=== PATIENT | female | born 1945 | race African-American/Black ===

== ENCOUNTER 2016-06-23 16:23 | Inpatient (IN) | payer OTHER ==
[~2016-06-23] VITALS: Ht 144.8 cm; Wt 51.1 kg
[~2016-06-23 16:23] MED LIST: CITALOPRAM HBR20 M1 PO; COGENTIN1 MG PO; GLUCOPHAGE1000 MG PO; IRON; LAMICTAL25 MG PO; LOPRESSOR25 MG PO; PRILOSEC40 MG PO; SEROQUEL200 MG PO; SEROQUEL300 MG PO; THERAGRAN1 TABLET PO; ZESTRIL,PRINIVI10 MG PO; Zestril,Prinivil PO
[2016-06-23 18:20] LABS: CHLORIDE 104 mEq/L (99-109); POTASSIUM 4.1 mEq/L (3.7-5.4); SODIUM 142 mEq/L (136-147)
[2016-06-23 18:22] LABS: GLUCOSE 305 mg/dL (70-99)
[2016-06-23 18:24] LABS: ANION GAP 12 MEQ/L (2-14); TOTAL BILIRUBIN 0.3 mg/dL (0.0-1.0)
[2016-06-23 18:26] LABS: ALKALINE PHOSPHATASE 96 IU/L (3-129); GFR ESTIMATE (CALCULATED) 38 mL/min/
[2016-06-23 18:27] LABS: UREA NITROGEN (BUN) 18 mg/dL (9-23)
[2016-06-23 18:37] LABS: HEMATOCRIT 33.1 % (36.0-46.0); MCH 30.9 PG (29.0-34.0); MCHC 34.1 G/DL (30.0-36.0); MCV 90.4 FL (83-99); RBC DIS.WIDTH-CV 12.5 % (11.8-14.6); RBC DIS.WIDTH-SD 39.5 % (39-53); RED BLOOD COUNT 3.66 M/uL (3.80-5.20); WHITE BLOOD COUNT 10.2 K/uL (4.1-10.2)
[2016-06-23 19:05] LABS: MEAN PLAT.VOLUME 13.2 uM^3 (9.5-12.4); PLATELET COUNT 218 K/uL (156-360)
[2016-06-23] MEDS ORDERED: LOPRESSOR50 MG PO (21:45)
[2016-06-23] MEDS ORDERED: FERROUS SULFAT325 MG PO (21:47)
[2016-06-23] MEDS ORDERED: LIPITOR40 MG PO (21:47)
[2016-06-23] MEDS ORDERED: PROTONIX40 MG PO (21:48)
[2016-06-23] MEDS ORDERED: CALCITRIOL0.25 MCG PO (21:48)
[2016-06-23] MEDS ORDERED: LANTUS 10100 UNITS/ SC (21:49)
[2016-06-23] MEDS ORDERED: HUMALOG100 UNIT/1 SC (21:49)
[2016-06-23] MEDS ORDERED: VITAMIN D31000 UNI2 PO (21:50)
[2016-06-23] MEDS ORDERED: PRESERVISION T1 EACH PO (21:50)
[2016-06-23] MEDS ORDERED: ZESTRIL20 MG PO (21:51)
[2016-06-23 23:54] VITALS: BP 210/101
[2016-06-24 07:38] VITALS: BP 187/105
[2016-06-24 15:39] VITALS: BP 176/78
[2016-06-24 17:24] LABS: POINT-OF-CARE METER ID UU13113830
[2016-06-25 06:10] LABS: POINT-OF-CARE METER ID UU13113830; POINT-OF-CARE USER ID ENVTLS63
[2016-06-25 07:44] VITALS: BP 182/84
[2016-06-25 10:08] LABS: GLUCOSE 350 mg/dL (70-99)
[2016-06-25 15:25] VITALS: BP 205/88
[2016-06-25 15:46] LABS: ANION GAP 12 MEQ/L (2-14); CHLORIDE 99 MEQ/L (99-109); POTASSIUM 4.8 MEQ/L (3.7-5.4); SAMPLE HEMOLYSIS CHECK 0; SAMPLE ICTERIC CHECK 0; SAMPLE LIPEMIA CHECK 0; SODIUM 136 MEQ/L (136-147)
[2016-06-25 15:52] LABS: GFR ESTIMATE (CALCULATED) > 59 mL/min/; GLUCOSE 313 mg/dL (70-99); UREA NITROGEN (BUN) 15 mg/dL (9-23)
[2016-06-25 16:08] LABS: HEMATOCRIT 32.9 % (36.0-46.0); MCH 30.9 PG (29.0-34.0); MCV 90.9 FL (83-99); MEAN PLAT.VOLUME 14.1 uM^3 (9.5-12.4); PLATELET COUNT 169 K/uL (156-360); RBC DIS.WIDTH-CV 12.8 % (11.8-14.6); RBC DIS.WIDTH-SD 41.8 % (39-53); RED BLOOD COUNT 3.62 M/uL (3.80-5.20); WHITE BLOOD COUNT 10.3 K/uL (4.1-10.2)
[2016-06-25 17:44] LABS: POINT-OF-CARE METER ID UU13113830; POINT-OF-CARE USER ID 611041309
[2016-06-25 21:04] VITALS: BP 164/105
[2016-06-25 21:10] VITALS: BP 164/105
[2016-06-25 21:35] LABS: POINT-OF-CARE METER ID UU13113830; POINT-OF-CARE USER ID ENVTLS63
[2016-06-26 02:09] LABS: POINT-OF-CARE METER ID UU13113830; POINT-OF-CARE USER ID ENVTLS63
[2016-06-26 06:33] LABS: POINT-OF-CARE METER ID UU13113830; POINT-OF-CARE USER ID ENVTLS63
[2016-06-26 06:46] LABS: POINT-OF-CARE METER ID UU13113830; POINT-OF-CARE USER ID ENVTLS63
[2016-06-26 08:00] VITALS: BP 150/90
[2016-06-26 11:06] LABS: POINT-OF-CARE METER ID UU13113830; POINT-OF-CARE USER ID HRSENV50
[2016-06-26 14:44] LABS: POINT-OF-CARE METER ID UU13113830
[2016-06-26 15:40] VITALS: BP 178/84
[2016-06-26 18:02] LABS: POINT-OF-CARE METER ID UU13113830; POINT-OF-CARE USER ID BHSSMG
[2016-06-26 20:34] LABS: POINT-OF-CARE METER ID UU13113830
[2016-06-26 21:22] LABS: POINT-OF-CARE METER ID UU13113830
[2016-06-27 06:41] LABS: POINT-OF-CARE METER ID UU13113830
[2016-06-27 07:09] LABS: POINT-OF-CARE METER ID UU13113830
[2016-06-27 07:23] LABS: Estimated Average Glucose 163 mg/dL (70-123)
[2016-06-27 07:29] LABS: HEMOGLOBIN A1c (GLYCOHEMOGLOB) 7.3 % HGB (Below 5.7)
[2016-06-27 07:56] VITALS: BP 146/78
[2016-06-27 15:29] VITALS: BP 185/84
[2016-06-27 19:13] VITALS: BP 192/92
[2016-06-27 21:30] LABS: POINT-OF-CARE METER ID UU13113830
[2016-06-28 06:29] LABS: POINT-OF-CARE METER ID UU13113830
[2016-06-28 07:41] VITALS: BP 185/91
[2016-06-28 12:21] LABS: POINT-OF-CARE METER ID UU13113830
[2016-06-28 15:30] VITALS: BP 211/108
[2016-06-28 17:45] LABS: POINT-OF-CARE METER ID UU13113830
[2016-06-28 18:18] VITALS: BP 218/100
[2016-06-28 21:25] LABS: POINT-OF-CARE METER ID UU13113830; POINT-OF-CARE USER ID 611041309
[2016-06-28 21:42] VITALS: BP 154/66
[2016-06-29 05:50] VITALS: BP 179/78
[2016-06-29 06:04] LABS: POINT-OF-CARE METER ID UU13113830; POINT-OF-CARE USER ID BHSSMG
[2016-06-29 07:45] VITALS: BP 114/59
[2016-06-29 10:05] LABS: ANION GAP 8 MEQ/L (2-14); CHLORIDE 103 MEQ/L (99-109); GFR ESTIMATE (CALCULATED) 48 mL/min/; GLUCOSE 201 mg/dL (70-99); POTASSIUM 3.9 MEQ/L (3.7-5.4); SAMPLE HEMOLYSIS CHECK 0; SAMPLE ICTERIC CHECK 0; SAMPLE LIPEMIA CHECK 0; SODIUM 140 MEQ/L (136-147); UREA NITROGEN (BUN) 20 mg/dL (9-23)
[2016-06-29 13:12] LABS: POINT-OF-CARE METER ID UU13113830; POINT-OF-CARE USER ID HRSENV50
[2016-06-29 15:29] VITALS: BP 165/74
[2016-06-29 21:06] LABS: POINT-OF-CARE METER ID UU13113830
[2016-06-30 06:22] LABS: POINT-OF-CARE METER ID UU13113830; POINT-OF-CARE USER ID ENVTLS63
[2016-06-30 08:01] VITALS: BP 139/69
[2016-06-30 09:20] LABS: ANION GAP 11 MEQ/L (2-14); CHLORIDE 107 MEQ/L (99-109); GFR ESTIMATE (CALCULATED) 48 mL/min/; GLUCOSE 185 mg/dL (70-99); POTASSIUM 4.2 MEQ/L (3.7-5.4); SAMPLE HEMOLYSIS CHECK 0; SAMPLE ICTERIC CHECK 0; SAMPLE LIPEMIA CHECK 0; SODIUM 143 MEQ/L (136-147); UREA NITROGEN (BUN) 23 mg/dL (9-23)
[2016-06-30 15:13] VITALS: BP 145/77
[2016-06-30 17:14] LABS: POINT-OF-CARE METER ID UU13113830
[2016-06-30 21:53] LABS: POINT-OF-CARE METER ID UU13113830; POINT-OF-CARE USER ID ENVTLS63
[2016-07-01 06:28] LABS: POINT-OF-CARE METER ID UU13113830; POINT-OF-CARE USER ID ENVTLS63
[2016-07-01 07:25] VITALS: BP 139/65
[2016-07-01 15:35] VITALS: BP 179/80
[2016-07-01 17:15] LABS: POINT-OF-CARE METER ID UU13113830
[2016-07-01 18:57] VITALS: BP 190/87
[2016-07-01 20:50] LABS: POINT-OF-CARE METER ID UU13113830
[2016-07-02 06:36] LABS: POINT-OF-CARE METER ID UU13113830
[2016-07-02 08:03] VITALS: BP 173/79
[2016-07-02 16:06] VITALS: BP 174/77
[2016-07-02 19:37] VITALS: BP 176/82
[2016-07-02 21:38] LABS: POINT-OF-CARE METER ID UU13113830; POINT-OF-CARE USER ID BHSMEW
[2016-07-03 06:18] LABS: POINT-OF-CARE METER ID UU13113830; POINT-OF-CARE USER ID BHSSMG
[2016-07-03 07:47] VITALS: BP 152/79
[2016-07-03 11:40] LABS: POINT-OF-CARE METER ID UU13113830
[2016-07-03 15:50] VITALS: BP 153/74
[2016-07-03 21:18] LABS: POINT-OF-CARE METER ID UU13113830; POINT-OF-CARE USER ID BHSMEW
[2016-07-04 00:49] LABS: POINT-OF-CARE METER ID UU13113830
[2016-07-04 06:59] LABS: POINT-OF-CARE METER ID UU13113830
[2016-07-04 08:01] VITALS: BP 147/78
[2016-07-04] MEDS ORDERED: LEVEMIR100 UNIT/2 SC (09:34)
[2016-07-04] MEDS ORDERED: SEROQUEL200 MG PO (09:34)
[2016-07-04] MEDS ORDERED: AMLODIPINE BESYL5 MG PO (09:34)
== END 2016-07-04 12:42 | disposition home or self-care (01) | DRG 885 ==
LOC: EME 16:23 → 1WEST 20:29 → EDOF 20:29 → 1WEST 23:42
PROVIDERS: Family Medicine; Hospitalist; Internal Medicine; Nurse Practitioner Family; Psychiatry & Neurology Psychiatry
DX: F31.2 Bipolar disorder, current episode manic severe with psychotic features (principal); E11.00 Type 2 diabetes mellitus with hyperosmolarity without nonketotic hyperglycemic-hyperosmolar coma (NKHHC); R44.0 Auditory hallucinations; E11.65 Type 2 diabetes mellitus with hyperglycemia; Z91.128 Patient's intentional underdosing of medication regimen for other reason; I10 Essential (primary) hypertension; E78.5 Hyperlipidemia, unspecified; F41.9 Anxiety disorder, unspecified; G47.00 Insomnia, unspecified; Z79.4 Long term (current) use of insulin; Z81.8 Family history of other mental and behavioral disorders; Z81.1 Family history of alcohol abuse and dependence
CPT/HCPCS: 80048; 80053; 81003; 82947; 82948; 83036; 84443; 84999; 85027; 90837; 93005; 97150 GO; 97165 GO; 99281; 99285; J1815